=== PATIENT | female | born 1965 | race Two or more races ===

== ENCOUNTER → 2024-04-28 | Outpatient (CLI) | payer OTHER ==
[~2024-04-28] MED LIST: KLONOPIN0.25 MG/TA PO; ZOLOFT50 MG PO
== END | disposition home or self-care (01) ==
LOC: RAD 11:38
DX: J44.9 Chronic obstructive pulmonary disease, unspecified (principal)

== ENCOUNTER 2024-06-19 08:37 | Outpatient (CLI) | payer OTHER | END 2024-06-19 08:47 | disposition home or self-care (01) | LOC: SONOGRAMA 08:37 | DX: K21.00 Gastro-esophageal reflux disease with esophagitis, without bleeding (principal) ==

== ENCOUNTER 2024-07-30 07:24 | Outpatient (CLI) | payer OTHER | END 2024-07-30 07:25 | disposition home or self-care (01) | LOC: NUCLEAR 07:24 | DX: R11.2 Nausea with vomiting, unspecified (principal); R68.81 Early satiety ==

== ENCOUNTER 2024-08-12 11:33 | Emergency (ER) | payer OTHER ==
[~2024-08-12] VITALS: Ht 167.6 cm; Wt 63.5 kg
[2024-08-12] MEDS ORDERED: BUDESONIDE-FO10.2 G1 (11:53)
[2024-08-12] MEDS ORDERED: BREZTRI AEROS10.7 GM (11:54)
== END 2024-08-12 14:18 | disposition home or self-care (01) ==
LOC: ER 11:33
DX: S05.11XA Contusion of eyeball and orbital tissues, right eye, initial encounter (principal); X58.XXXA Exposure to other specified factors, initial encounter; Y93.89 Activity, other specified; Y92.010 Kitchen of single-family (private) house as the place of occurrence of the external cause; Y99.9 Unspecified external cause status; I10 Essential (primary) hypertension; Z88.0 Allergy status to penicillin; Z87.09 Personal history of other diseases of the respiratory system